=== PATIENT | male | born 1995 | race Caucasian/White ===

== ENCOUNTER 2023-01-09 21:01 | Emergency (ER) | payer OTHER, SELFPAY ==
[2023-01-09 21:09] VITALS: BP 130/92; PULSE 94; RESP 18; TEMP 36.8; O2SAT 97; BMI 26.2
--- NOTE | 2023-01-09 21:53 | ED_ITS ---
HPI - Wound/Laceration General Chief Complaint: Wound/Laceration Stated Complaint: head injury Time Seen by Provider: 01/09/23 21:32 Source: patient Mode of arrival: Ambulatory History of Present Illness HPI narrative: 27-year-old male nonsmoker with up-to-date tetanus and no chronic medical history presents for evaluation of a head injury at work prior to arrival. He states that he was struck in the head with a speed handle above his left eye and has a small laceration. He has full recall of the event and denies any loss of consciousness, blurred vision or other neurologic symptoms. He states that he was briefly a bit nauseated but that has since resolved. Related Data Allergies Allergy/AdvReac Type Severity Reaction Status Date / Time No Known Drug Allergies Allergy Verified 01/09/23 21:08 Review of Systems Review of Systems Narrative: GENERAL: Denies chills, fatigue, malaise, fever, sweats. HEENT: Denies sinus pain, ear pain, sore throat, difficulty swallowing, dizziness. RESPIRATORY: Denies dyspnea, cough, wheezing, hemoptysis, sputum. CARDIOVASCULAR: Denies chest pain, palpitations, orthopnea, edema, GASTROINTESTINAL: Denies nausea, vomiting, abdominal pain, diarrhea, constipation, melena. : Denies dysuria, frequency, incontinence, hematuria, urinary retention. MUSCULOSKELETAL: denies weakness, joint pain, or bony pain SKIN: See HPI NEUROLOGIC: Denies weakness, headache, numbness, change in speech, confusion, seizures, incoordination. PSYCHIATRIC: No concerning psychosocial issues. 12 point review of systems is negative except for those stated above Patient History Social History Smoking Status: Never smoker Smoking Status: Never smoker alcohol intake frequency: holidays/special occasions only Substance Use Type: does not use Exam Narrative Exam Narrative: GEN: AOx3 and in mild distress HEAD: 1 cm laceration over the left brow, minimal active bleeding, no evidence of foreign body, very small associated hematoma and no evidence of depressed skull fracture EYES: Pupils are equal, round, and reactive to light and accommodation. No hyphema Extraoccular muscles are intact bilaterally. There is no subconjunctival hemorrhage or exudate. CHEST: Lungs are clear to auscultation bilaterally and free of wheezes, rales, or rhonchi. Heart rate is regular rhythm, there are no murmurs, clicks, rubs, or gallops. There is no chest wall tenderness. ABD: Abdomen is soft and nontender. There is no guarding or rebound. Bowel sounds are normal in all 4 quadrants. There is no mass or organomegaly. EXT: Full painless ROM of all extremities with no loss of sensation or strength. SKIN: Warm, pink, and dry. No erythema or rash Initial Vital Signs Initial Vital Signs: Vital Signs Temperature 98.2 F 01/09/23 21:09 Pulse Rate 94 H 01/09/23 21:09 Respiratory Rate 18 01/09/23 21:09 Blood Pressure 130/92 H 01/09/23 21:09 Pulse Oximetry 97 01/09/23 21:09 Oxygen Delivery Method Room Air 01/09/23 21:09 Procedures Laceration Repair Laceration 1: Site: face Side (If applicable): left Description: linear Depth: simple, single layer Local Anesthetic: lidocaine 1% and with epi Amount of anesthesia used (mL): 3 Pre-repair: wound explored and cleansed with chlorhexadine Skin layer closed with: nylon Skin layer suture size: 6-0 Number of sutures: 3 Technique: simple, interrupted Course Orders Ordered: Discontinued Medications Acetaminophen (Acetaminophen 325 Mg Tablet) 975 mg PO NOW ONE Stop: 01/09/23 22:08 Vital Signs Vital signs: Vital Signs - 8 hr 01/09/23 21:09 Temperature 98.2 F Pulse Rate 94 H Respiratory Rate 18 Blood Pressure 130/92 H Pulse Oximetry 97 Oxygen Delivery Method Room Air MDM - Wound/Laceration MDM Narrative Medical decision making narrative: [27] year old patient presents with low risk head injury with small laceration Multiple etiologies for patient's symptoms considered including, but not limited to: [Laceration versus concussion versus intracranial hemorrhage versus other] Patient with low risk head injury, no loss of consciousness, use of anticoagulants, evidence of depressed skull fracture, no indication for imaging. Small laceration that does require 3 stitches. Patient's symptoms improved over duration of stay with above-stated therapies. Findings and discharge diagnosis discussed with patient/family followed by verbalization of understanding Return precautions discussed with patient/family whom verbalize understanding of diagnosis and plan Discharge Plan Departure Patient Disposition: Home Clinical Impression: Laceration Instructions: DI for Laceration Repair Activity Restrictions/Additional Instructions: *You have been diagnosed with [head injury with laceration] *What to do: *Please continue to take your regular medications as directed. [ ] New medication prescriptions sent to your pharmacy: [ ] [ ] New medication written as a paper prescription [ ] No new medications given * Please keep the wound clean and dry to the best of your ability. Please monitor for signs of infection such as redness to the skin or increasing pain. Have the sutures/jer removed by your doctor in about 7 days. If you are unable to get into your doctor, we would be happy to remove the sutures/jer in that same timeframe. *If you do not have a primary care provider please contact the [facility] Resource line at [phone]. They will ask some questions about your medical history and help get you set up with a doctor in the community. *Return to Emergency Department if you should have any new, worsening or concerning symptoms, such as [fever greater than 101 F, shaking chills, worsening pain, persistent vomiting or other bothersome symptoms] Referrals: Aquilino Dodson [Primary Care Provider] - Stand Alone Forms: Patient Portal/API
[2023-01-09] MEDS: ACETAMINOPHEN 325 MG TABLET 975 MG PO (22:11)
[2023-01-09 22:12] VITALS: BP 137/92; PULSE 75; RESP 18; O2SAT 98
== END 2023-01-09 22:14 | disposition home or self-care (01) ==
PROVIDERS: Emergency Provider Emergency Medicine
DX: S01.81XA Laceration without foreign body of other part of head, initial encounter (principal); W22.8XXA Striking against or struck by other objects, initial encounter
CPT/HCPCS: 12011; 99283